=== PATIENT | female | born 1995 | race Two or more races ===

== ENCOUNTER 2020-11-30 15:03 | Emergency (ER) | payer MEDICAID ==
[~2020-11-30] VITALS: Ht 149.9 cm; Wt 59.0 kg
[~2020-11-30 15:03] MED LIST: ALBUPOW26; CETI10CH3; FLUT50AE2; MONT4CHW9; PRED10PA7; [UNRECOGNIZED DRUG - OTHER]
[2020-11-30 16:04] LABS: Basophils # (auto) 0.1 10 ^3/uL (0-0.2); Basophils % (auto) 0.6 % (0.0-2.0); Eosinophils # (auto) 0.3 10 ^3/uL (0-0.8); Eosinophils % (auto) 3.4 % (0.0-7.0); Hematocrit 37.5 % (36.0-46.0); Hemoglobin 12.7 g/dL (12.2-16.2); Lymphocytes # (auto) 2.2 10 ^3/uL (0.4-5.4); Mean Corpuscular Hemoglobin 28.3 pg (28.0-32.0); Mean Corpuscular Hgb Conc. 33.9 g/dL (32.0-36.0); Mean Corpuscular Volume 83.5 fL (80.0-100.0); Monocytes % (auto) 10.6 % (0.0-12.0); Neutrophils # (auto) 5.9 10 ^3/uL (1.6-8.6); Neutrophils % (auto) 62.4 % (37.0-80.0); Nucleated Red Blood Cells % 0.1 %; Platelet Count (auto) 299 10^3/uL (140-450); Red Cell Distribution Width 16.7 % (11.8-14.3); White Blood Cell 9.4 10^3/uL (4.4-10.8)
[2020-11-30 16:15] LABS: Albumin 3.4 g/dL (3.4-5.0); Calcium 8.2 mg/dL (8.5-10.1); Potassium 3.9 mmol/L (3.5-5.1)
[2020-11-30 16:20] LABS: BUN/Creatinine Ratio 17.2; Bilirubin, Total 0.2 mg/dL (0.2-1.0); Total Protein 7.5 g/dL (6.4-8.2)
[2020-11-30 18:22] LABS: Urine Bacteria MOD /hpf (None Seen); Urine Blood Negative /uL (Negative); Urine Specific Gravity 1.016 (1.001-1.035); Urine WBC 51 /hpf (0 - 5)
[2020-11-30 18:35] VITALS: BP 128/74
== END 2020-11-30 18:51 | disposition home or self-care (01) ==
LOC: ER 15:03
DX: O20.0 Threatened abortion (principal); K80.20 Calculus of gallbladder without cholecystitis without obstruction
CPT/HCPCS: 36415; 76705; 76801; 76817; 80053; 81001; 84702; 85025

== ENCOUNTER 2020-12-06 10:10 | Emergency (ER) | payer MEDICAID ==
[~2020-12-06] VITALS: Ht 149.9 cm; Wt 81.6 kg
[2020-12-06] MEDS ORDERED: ACETAMINOPHEN 325 MG TAB PO ONE (11:45)
[2020-12-06 11:53] LABS: Urine WBC None Seen /hpf (0 - 5)
[2020-12-06 12:18] LABS: Urine Bacteria NONE SEEN /hpf (None Seen); Urine Blood Negative /uL (Negative); Urine Specific Gravity 1.011 (1.001-1.035)
[2020-12-06] MEDS ORDERED: ONDANSETRON ODT 4 MG TAB PO ONE (12:45)
[2020-12-06 15:48] VITALS: BP 123/60
== END 2020-12-06 15:51 | disposition home or self-care (01) ==
LOC: ER 10:10
DX: O20.0 Threatened abortion (principal); N83.12 Corpus luteum cyst of left ovary; Z3A.01 Less than 8 weeks gestation of pregnancy
CPT/HCPCS: 36415; 76705; 76801; 76817; 81001; 84702; 99285; Q0162

== ENCOUNTER 2021-01-14 10:56 | Emergency (ER) | payer MEDICAID ==
[~2021-01-14] VITALS: Ht 149.9 cm; Wt 81.6 kg
[2021-01-14] MEDS ORDERED: SODIUM CHLORIDE 0.9% 1,000 ML IV ONE (11:00)
[2021-01-14] MEDS ORDERED: ONDANSETRON HCL 4 MG/2 ML VIAL IV ONE (11:00)
[2021-01-14 11:35] LABS: Basophils # (auto) 0 10 ^3/uL (0-0.2); Basophils % (auto) 0.3 % (0.0-2.0); Eosinophils # (auto) 0.4 10 ^3/uL (0-0.8); Hematocrit 37.5 % (36.0-46.0); Hemoglobin 12.7 g/dL (12.2-16.2); Lymphocytes # (auto) 1.8 10 ^3/uL (0.4-5.4); Lymphocytes % (auto) 19.5 % (10.0-50.0); Mean Corpuscular Hemoglobin 28.3 pg (28.0-32.0); Mean Corpuscular Hgb Conc. 33.9 g/dL (32.0-36.0); Mean Corpuscular Volume 83.5 fL (80.0-100.0); Monocytes # (auto) 0.8 10 ^3/uL (0-1.3); Monocytes % (auto) 8.7 % (0.0-12.0); Neutrophils # (auto) 6.3 10 ^3/uL (1.6-8.6); Neutrophils % (auto) 67.5 % (37.0-80.0); Nucleated Red Blood Cells % 0.2 %; Red Blood Cells 4.49 10^6/uL (4.0-5.20); Red Cell Distribution Width 13.1 % (11.8-14.3); White Blood Cell 9.4 10^3/uL (4.4-10.8)
[2021-01-14 11:38] LABS: Urine Bacteria NONE SEEN /hpf (None Seen); Urine Blood Negative /uL (Negative); Urine Mucus FEW (None Seen); Urine Specific Gravity 1.014 (1.001-1.035); Urine WBC <1 /hpf (0 - 5)
[2021-01-14 11:52] LABS: Albumin 3.6 g/dL (3.4-5.0); BUN/Creatinine Ratio 9.5; Calcium 8.6 mg/dL (8.5-10.1); Potassium 3.5 mmol/L (3.5-5.1)
[2021-01-14 11:56] LABS: Bilirubin, Total 0.3 mg/dL (0.2-1.0); Total Protein 7.8 g/dL (6.4-8.2)
[2021-01-14 12:53] VITALS: BP 106/58
== END 2021-01-14 12:54 | disposition home or self-care (01) ==
LOC: ER 10:56
DX: O21.0 Mild hyperemesis gravidarum (principal); Z3A.12 12 weeks gestation of pregnancy
CPT/HCPCS: 36415; 80053; 81001; 82010; 84702; 85025; 96361; 96374; 99283; J2405; J7030

== ENCOUNTER 2021-01-25 20:27 | Emergency (ER) | payer MEDICAID ==
[~2021-01-25] VITALS: Ht 149.9 cm; Wt 81.6 kg
[2021-01-25 22:36] LABS: Urine Bacteria FEW /hpf (None Seen); Urine Blood Negative /uL (Negative); Urine Specific Gravity 1.006 (1.001-1.035); Urine WBC 1 /hpf (0 - 5)
[2021-01-25 23:28] LABS: Basophils # (auto) 0 10 ^3/uL (0-0.2); Basophils % (auto) 0.3 % (0.0-2.0); Eosinophils # (auto) 0.5 10 ^3/uL (0-0.8); Eosinophils % (auto) 4.6 % (0.0-7.0); Hematocrit 37.6 % (36.0-46.0); Hemoglobin 12.4 g/dL (12.2-16.2); Lymphocytes # (auto) 2.9 10 ^3/uL (0.4-5.4); Lymphocytes % (auto) 29.1 % (10.0-50.0); Mean Corpuscular Volume 84.7 fL (80.0-100.0); Monocytes # (auto) 1.1 10 ^3/uL (0-1.3); Monocytes % (auto) 10.9 % (0.0-12.0); Neutrophils # (auto) 5.4 10 ^3/uL (1.6-8.6); Neutrophils % (auto) 55.1 % (37.0-80.0); Nucleated Red Blood Cells % 0.1 %; Platelet Count (auto) 289 10^3/uL (140-450); Red Blood Cells 4.44 10^6/uL (4.0-5.20); Red Cell Distribution Width 13.6 % (11.8-14.3); White Blood Cell 9.8 10^3/uL (4.4-10.8)
[2021-01-25 23:45] LABS: INR 0.92 (0.9-1.15); Partial Thromboplastin Time 26.1 sec (23.0-31.2)
[2021-01-25 23:48] LABS: Albumin 3.5 g/dL (3.4-5.0); Anion Gap 8 (5-15); Blood Urea Nitrogen 7 mg/dL (7-18); Calcium 8.8 mg/dL (8.5-10.1); Carbon Dioxide 22 mmol/L (21-32); Chloride 108 mmol/L (98-107); Glucose 83 mg/dL (74-106); Potassium 3.8 mmol/L (3.5-5.1); Sodium 138 mmol/L (136-145)
[2021-01-25 23:51] LABS: Alanine Aminotransferase 21 U/L (13-56); Alkaline Phosphatase 44 U/L (45-117); Aspartate Aminotransferase 14 U/L (15-37); BUN/Creatinine Ratio 15.2; Bilirubin, Total < 0.1 mg/dL (0.2-1.0); GFR African American 211 mL/min; GFR Non-African American 175 mL/min; Total Protein 7.6 g/dL (6.4-8.2)
[2021-01-26] VITALS: BP 130/70
[2021-01-26] MEDS ORDERED: ACETAMINOPHEN 325 MG TAB PO ONE (00:30)
== END 2021-01-26 00:42 | disposition home or self-care (01) ==
LOC: ER 20:27
DX: O20.0 Threatened abortion (principal); Z3A.14 14 weeks gestation of pregnancy
CPT/HCPCS: 36415; 76805; 80053; 81001; 84702; 85025; 85610; 85730

== ENCOUNTER 2021-02-16 21:45 | Emergency (ER) | payer MEDICAID ==
[~2021-02-16] VITALS: Ht 149.9 cm; Wt 81.6 kg
[2021-02-16 23:01] LABS: Basophils # (auto) 0 10 ^3/uL (0-0.2); Basophils % (auto) 0.3 % (0.0-2.0); Eosinophils # (auto) 0.7 10 ^3/uL (0-0.8); Eosinophils % (auto) 6.2 % (0.0-7.0); Hematocrit 35.9 % (36.0-46.0); Hemoglobin 11.9 g/dL (12.2-16.2); Lymphocytes # (auto) 2.8 10 ^3/uL (0.4-5.4); Lymphocytes % (auto) 23.6 % (10.0-50.0); Mean Corpuscular Hemoglobin 27.3 pg (28.0-32.0); Mean Corpuscular Hgb Conc. 33.1 g/dL (32.0-36.0); Mean Corpuscular Volume 82.6 fL (80.0-100.0); Monocytes # (auto) 1.3 10 ^3/uL (0-1.3); Monocytes % (auto) 10.8 % (0.0-12.0); Neutrophils # (auto) 7.1 10 ^3/uL (1.6-8.6); Neutrophils % (auto) 59.1 % (37.0-80.0); Nucleated Red Blood Cells % 0.2 %; Platelet Count (auto) 303 10^3/uL (140-450); Red Blood Cells 4.35 10^6/uL (4.0-5.20); Red Cell Distribution Width 13.2 % (11.8-14.3)
[2021-02-16 23:20] LABS: Alanine Aminotransferase 17 U/L (13-56); Albumin 3.2 g/dL (3.4-5.0); Anion Gap 7 (5-15); Aspartate Aminotransferase 15 U/L (15-37); BUN/Creatinine Ratio 17.5; Blood Urea Nitrogen 7 mg/dL (7-18); Calcium 9.3 mg/dL (8.5-10.1); Carbon Dioxide 21 mmol/L (21-32); Chloride 109 mmol/L (98-107); GFR African American 248 mL/min; GFR Non-African American 205 mL/min; Glucose 86 mg/dL (74-106); Potassium 3.8 mmol/L (3.5-5.1); Sodium 137 mmol/L (136-145)
[2021-02-16 23:28] LABS: Alkaline Phosphatase 42 U/L (45-117); Bilirubin, Total < 0.1 mg/dL (0.2-1.0); Total Protein 7.1 g/dL (6.4-8.2)
[2021-02-17 00:27] VITALS: BP 110/40
[2021-02-17 01:46] LABS: Urine Bacteria NONE SEEN /hpf (None Seen); Urine Blood Negative /uL (Negative); Urine Specific Gravity 1.013 (1.001-1.035); Urine WBC 2 /hpf (0 - 5)
== END 2021-02-17 01:52 | disposition home or self-care (01) ==
LOC: ER 21:49
DX: O26.892 Other specified pregnancy related conditions, second trimester (principal); R10.9 Unspecified abdominal pain; O99.512 Diseases of the respiratory system complicating pregnancy, second trimester; J45.909 Unspecified asthma, uncomplicated; Z3A.17 17 weeks gestation of pregnancy; Z88.1 Allergy status to other antibiotic agents; Z87.42 Personal history of other diseases of the female genital tract
CPT/HCPCS: 36415; 76805; 80053; 81001; 84702; 85025

== ENCOUNTER 2021-04-01 22:53 | Observation (INO) | payer MEDICAID ==
[~2021-04-01] VITALS: Ht 149.9 cm; Wt 81.6 kg
[2021-04-02] MEDS ORDERED: LACTATED RINGER'S 1,000 ML IV ONE
[2021-04-02] MEDS ORDERED: TERBUTALINE SULFATE 1 MG/ML 1ML VIAL SC ONE (01:15)
[2021-04-02] MEDS ORDERED: NIFEdipine 10 MG CAP PO ONE (02:15)
[2021-04-02] MEDS ORDERED: PREN-96 OR (03:09)
== END 2021-04-02 03:36 | disposition home or self-care (01) ==
LOC: LDRP 22:53
PROVIDERS: ADMIT Specialist; ATTEND Specialist
DX: O36.8130 Decreased fetal movements, third trimester, not applicable or unspecified (principal); O62.9 Abnormality of forces of labor, unspecified; Z3A.23 23 weeks gestation of pregnancy
CPT/HCPCS: 59025; 76705; 81002; 96360; 96372; G0378; J3105; 96361

== ENCOUNTER 2021-04-08 12:50 | Observation (INO) | payer MEDICAID ==
[~2021-04-08 12:50] MED LIST changes: +PREN-96 OR
== END 2021-04-08 14:50 | disposition home or self-care (01) ==
LOC: LDRP 12:50
PROVIDERS: ADMIT Obstetrics & Gynecology; ATTEND Obstetrics & Gynecology
DX: O36.8120 Decreased fetal movements, second trimester, not applicable or unspecified (principal); Z3A.24 24 weeks gestation of pregnancy
CPT/HCPCS: 59025; 81002; G0378

== ENCOUNTER 2021-04-22 20:21 | Observation (INO) | payer MEDICAID ==
[~2021-04-22] VITALS: Ht 149.9 cm; Wt 85.3 kg
[~2021-04-22 20:21] MED LIST changes: -CETI10CH3; -MONT4CHW9; -PRED10PA7; -[UNRECOGNIZED DRUG - OTHER]
[2021-04-22] MEDS ORDERED: NIF10C PO (21:02)
[2021-04-22 21:14] LABS: Urine Bacteria FEW /hpf (None Seen); Urine Blood Negative /uL (Negative); Urine Mucus FEW (None Seen); Urine Specific Gravity 1.031 (1.001-1.035); Urine WBC 5 /hpf (0 - 5)
[2021-04-22 21:24] LABS: Alcohol, Urine < 3.0 mg/dL (0-10); Amphetamine Screen, Urine NEGATIVE (NEGATIVE); Barbiturate Scree,Urine NEGATIVE (NEGATIVE); Benzodiazephine Screen, Urine NEGATIVE (NEGATIVE); Cannabinoid Screen, Urine NEGATIVE (NEGATIVE); Cocaine Screen, Urine NEGATIVE (NEGATIVE); Opiate Scree,Urine NEGATIVE (NEGATIVE); Phencyclidine Screen, Urine NEGATIVE (NEGATIVE)
[2021-04-22] MEDS ORDERED: NIFEdipine 10 MG CAP PO ONE (22:30)
== END 2021-04-22 23:39 | disposition home or self-care (01) ==
LOC: LDRP 20:21
PROVIDERS: ADMIT Obstetrics & Gynecology; ATTEND Obstetrics & Gynecology
DX: O26.892 Other specified pregnancy related conditions, second trimester (principal); R10.9 Unspecified abdominal pain; O26.852 Spotting complicating pregnancy, second trimester; W50.0XXA Accidental hit or strike by another person, initial encounter; Y93.89 Activity, other specified; Y92.89 Other specified places as the place of occurrence of the external cause; Z88.0 Allergy status to penicillin; Z3A.26 26 weeks gestation of pregnancy; Z79.899 Other long term (current) drug therapy
CPT/HCPCS: 59025; 76815; 80307; 81001; 81002; 94760; G0378

== ENCOUNTER 2021-05-02 23:28 | Observation (INO) | payer MEDICAID ==
[~2021-05-02] VITALS: Ht 149.9 cm; Wt 84.4 kg
[~2021-05-02 23:28] MED LIST changes: +NIF10C PO
== END 2021-05-03 03:35 | disposition home or self-care (01) ==
LOC: LDRP 23:28
PROVIDERS: ADMIT Specialist; ATTEND Specialist
DX: O26.892 Other specified pregnancy related conditions, second trimester (principal); R10.9 Unspecified abdominal pain; O99.891 Other specified diseases and conditions complicating pregnancy; M54.9 Dorsalgia, unspecified; Z88.0 Allergy status to penicillin; Z3A.27 27 weeks gestation of pregnancy
CPT/HCPCS: 59025; 76705; 81002; G0378

== ENCOUNTER 2021-05-16 11:40 | Observation (INO) | payer MEDICAID | END 2021-05-16 13:45 | disposition home or self-care (01) | LOC: LDRP 11:40 | PROVIDERS: ADMIT Specialist; ATTEND Specialist | DX: O36.8130 Decreased fetal movements, third trimester, not applicable or unspecified (principal); O62.9 Abnormality of forces of labor, unspecified; O26.893 Other specified pregnancy related conditions, third trimester; R11.0 Nausea; Z3A.29 29 weeks gestation of pregnancy | CPT/HCPCS: 59025; 81002; 96360; G0378; 96374 ==

== ENCOUNTER 2021-05-18 08:09 | Observation (INO) | payer MEDICAID ==
[~2021-05-18] VITALS: Ht 149.9 cm; Wt 85.3 kg
== END 2021-05-18 16:00 | disposition home or self-care (01) ==
LOC: LDRP 14:15
PROVIDERS: ADMIT Obstetrics & Gynecology; ATTEND Obstetrics & Gynecology
DX: O40.3XX0 Polyhydramnios, third trimester, not applicable or unspecified (principal); O60.03 Preterm labor without delivery, third trimester; Z88.0 Allergy status to penicillin; Z3A.29 29 weeks gestation of pregnancy
CPT/HCPCS: 59025; 76818; 81002; 82948; 94760; G0378

== ENCOUNTER 2021-05-25 13:25 | Observation (INO) | payer MEDICAID ==
[~2021-05-25] VITALS: Ht 149.9 cm; Wt 85.3 kg
[2021-05-26] MEDS ORDERED: ONDA-144 PO (02:52)
== END 2021-05-25 15:59 | disposition home or self-care (01) ==
LOC: LDRP 13:25
PROVIDERS: ADMIT Specialist; ATTEND Specialist
DX: O60.03 Preterm labor without delivery, third trimester (principal); O40.3XX0 Polyhydramnios, third trimester, not applicable or unspecified; Z3A.30 30 weeks gestation of pregnancy
CPT/HCPCS: 59025; 76818; 81002; G0378

== ENCOUNTER 2021-05-25 23:40 | Observation (INO) | payer MEDICAID ==
[~2021-05-25] VITALS: Ht 149.9 cm; Wt 81.6 kg
[2021-05-26] MEDS ORDERED: ONDANSETRON HCL 4 MG/2 ML VIAL IM ONE (00:15)
[2021-05-26] MEDS ORDERED: LACTATED RINGER'S 1,000 ML IV ONE (00:15)
[2021-05-26] MEDS ORDERED: ONDANSETRON HCL 4 MG/2 ML VIAL IV ONE (00:15)
[2021-05-26] MEDS: TERBUTALINE SULFATE 1 MG/ML 1ML VIAL SC SCH ×3 (00:35→03:31)
[2021-05-26] MEDS ORDERED: ONDA-144 PO (02:52)
== END 2021-05-26 03:04 | disposition home or self-care (01) ==
LOC: LDRP 23:40
PROVIDERS: ADMIT Specialist; ATTEND Specialist
DX: O60.03 Preterm labor without delivery, third trimester (principal); Z3A.30 30 weeks gestation of pregnancy
CPT/HCPCS: 59025; 81002; 94760; 96361; 96372; 96374; G0378; J2405; J3105; 96360

== ENCOUNTER 2021-05-28 10:54 | Observation (INO) | payer MEDICAID ==
[~2021-05-28 10:54] MED LIST changes: +ONDA-144 PO
== END 2021-05-28 12:08 | disposition home or self-care (01) ==
LOC: LDRP 10:54
PROVIDERS: ADMIT Specialist; ATTEND Specialist
DX: O40.3XX0 Polyhydramnios, third trimester, not applicable or unspecified (principal); O62.9 Abnormality of forces of labor, unspecified; Z3A.31 31 weeks gestation of pregnancy
CPT/HCPCS: 59025; 76818; 81002; 94762; G0378

== ENCOUNTER 2021-06-01 08:14 | Observation (INO) | payer MEDICAID | END 2021-06-01 14:13 | disposition home or self-care (01) | LOC: LDRP 13:11 | PROVIDERS: ADMIT Obstetrics & Gynecology; ATTEND Obstetrics & Gynecology | DX: O40.3XX0 Polyhydramnios, third trimester, not applicable or unspecified (principal); O60.03 Preterm labor without delivery, third trimester; Z3A.31 31 weeks gestation of pregnancy; Z79.899 Other long term (current) drug therapy; Z88.1 Allergy status to other antibiotic agents | CPT/HCPCS: 59025; 76818; 81002; G0378 ==

== ENCOUNTER 2021-06-05 17:58 | Observation (INO) | payer MEDICAID ==
[~2021-06-05] VITALS: Ht 149.9 cm; Wt 81.6 kg
== END 2021-06-05 20:07 | disposition home or self-care (01) ==
LOC: LDRP 17:58
PROVIDERS: ADMIT Obstetrics & Gynecology; ATTEND Obstetrics & Gynecology
DX: O36.8130 Decreased fetal movements, third trimester, not applicable or unspecified (principal); Z3A.32 32 weeks gestation of pregnancy; Z98.891 History of uterine scar from previous surgery
CPT/HCPCS: 59025; 76818; 81002; G0378

== ENCOUNTER 2021-07-16 04:04 | Inpatient (IN) | payer MEDICAID ==
[~2021-07-16] VITALS: Ht 144.8 cm; Wt 85.7 kg
[2021-07-16] VITALS (18 sets, daily range): BP systolic 110–137; BP diastolic 63–84
[2021-07-16] MEDS ORDERED: LACTATED RINGER'S 1,000 ML IV ONE (04:30)
[2021-07-16 05:13] LABS: Basophils # (auto) 0 10 ^3/uL (0-0.2); Eosinophils # (auto) 0.3 10 ^3/uL (0-0.8); Eosinophils % (auto) 3.1 % (0.0-7.0); Lymphocytes # (auto) 2.1 10 ^3/uL (0.4-5.4)
[2021-07-16] MEDS ORDERED: CLINDAMYCIN 900MG IV 50 ML IV ONE ×2 (05:15→07:04)
[2021-07-16 05:16] LABS: Basophils % (auto) 0.3 % (0.0-2.0); Hematocrit 31.4 % (36.0-46.0); Lymphocytes % (auto) 23.3 % (10.0-50.0); Mean Corpuscular Hemoglobin 22.3 pg (28.0-32.0); Mean Corpuscular Hgb Conc. 31.8 g/dL (32.0-36.0); Mean Corpuscular Volume 70.2 fL (80.0-100.0); Neutrophils # (auto) 5.6 10 ^3/uL (1.6-8.6); Neutrophils % (auto) 62.3 % (37.0-80.0); Nucleated Red Blood Cells % 0.1 %; Red Blood Cells 4.47 10^6/uL (4.0-5.20); Red Cell Distribution Width 17.2 % (11.8-14.3)
[2021-07-16 05:19] LABS: INR 0.94 (0.9-1.15); Partial Thromboplastin Time 25.1 sec (23.6-33.0)
[2021-07-16 05:24] LABS: Albumin 2.5 g/dL (3.4-5.0); Calcium 8.1 mg/dL (8.5-10.1); Potassium 3.6 mmol/L (3.5-5.1)
[2021-07-16 05:27] LABS: Bilirubin, Total 0.2 mg/dL (0.2-1.0); Total Protein 6.4 g/dL (6.4-8.2)
[2021-07-16] MEDS: LACTATED RINGER'S 1,000 ML IV SCH ×2 (05:31→21:31)
[2021-07-16 05:43] LABS: Urine Bacteria FEW /hpf (None Seen); Urine Blood Negative /uL (Negative); Urine Specific Gravity 1.011 (1.001-1.035); Urine WBC 7 /hpf (0 - 5)
[2021-07-16 05:48] LABS: Alcohol, Urine < 3.0 mg/dL (0-10); Amphetamine Screen, Urine NEGATIVE (NEGATIVE); Barbiturate Scree,Urine NEGATIVE (NEGATIVE); Benzodiazephine Screen, Urine NEGATIVE (NEGATIVE); Cannabinoid Screen, Urine NEGATIVE (NEGATIVE); Cocaine Screen, Urine NEGATIVE (NEGATIVE); Opiate Scree,Urine NEGATIVE (NEGATIVE); Phencyclidine Screen, Urine NEGATIVE (NEGATIVE)
[2021-07-16] MEDS ORDERED: fentaNYL CITRATE 100 MCG/2 ML VL ONE (07:15)
[2021-07-16] MEDS ORDERED: PHENYLEPHRINE HCL 10 MG/ML VL IV ONE (07:15)
[2021-07-16] MEDS ORDERED: oxyTOCIN 10 UNIT/ML 10ML VIAL ONE (07:15)
[2021-07-16] MEDS ORDERED: CLINDAMYCIN 600MG IV 50 ML IV SCH ×2 (07:15→14:00)
[2021-07-16] MEDS ORDERED: MIDAZOLAM HCL 2MG/2ML 2ml VIAL (1mg/ml) ONE ×2 (07:15→08:02)
[2021-07-16] MEDS ORDERED: TETRACAINE 1% INJ 2 ML VIAL IJ ONE (07:32)
[2021-07-16] MEDS ORDERED: LABETALOL HCL 5 MG/ML 4ML SYRINGE IV PRN (08:45)
[2021-07-16] MEDS ORDERED: KETOROLAC TROMETH 30 MG/ML 1ML VIAL IV ONE (08:45)
[2021-07-16] MEDS ORDERED: GUM (CHEWING) 1 GUM CHEW CHEW ONE (08:45)
[2021-07-16] MEDS ORDERED: fentaNYL CITRATE 100 MCG/2 ML VL IV PRN (08:45)
[2021-07-16] MEDS ORDERED: MORPHINE SULFATE 4 MG/ML SYR/VIAL IV PRN (08:45)
[2021-07-16] MEDS ORDERED: ePHEDrine SULFATE 50 MG/ML AMP IV PRN (08:45)
[2021-07-16] MEDS ORDERED: LACT. RINGERS/OXYTOCIN 20UNITS 1,000 ML IV ONE (08:45)
[2021-07-16] MEDS ORDERED: HYDROmorphone HCL 2 MG/ML VL IV PRN (08:45)
[2021-07-16] MEDS ORDERED: ONDANSETRON HCL 4 MG/2 ML VIAL IV PRN ×2 (08:45)
[2021-07-16] MEDS ORDERED: MIDAZOLAM HCL 2MG/2ML 2ml VIAL (1mg/ml) IV PRN (08:45)
[2021-07-16] MEDS: ACETAMINOPHEN IV 1000 MG/100ML (10MG/ML) IV SCH ×2 (12:24→21:56)
[2021-07-16] MEDS: MORPHINE SULFATE 4 MG/ML SYR/VIAL IV PRN ×3 (14:32→23:38)
[2021-07-16] MEDS: CLINDAMYCIN 600MG IV 50 ML IV SCH ×2 (14:33→23:05)
[2021-07-16 21:32] LABS: Basophils # (auto) 0 10 ^3/uL (0-0.2); Eosinophils # (auto) 0.1 10 ^3/uL (0-0.8); Hemoglobin 10.2 g/dL (12.2-16.2); Lymphocytes % (auto) 9.6 % (10.0-50.0); Monocytes # (auto) 0.9 10 ^3/uL (0-1.3); Nucleated Red Blood Cells % 0.1 %
[2021-07-16 21:34] LABS: Basophils % (auto) 0.4 % (0.0-2.0); Hematocrit 33.6 % (36.0-46.0); Lymphocytes # (auto) 1.3 10 ^3/uL (0.4-5.4); Mean Corpuscular Hemoglobin 21.5 pg (28.0-32.0); Mean Corpuscular Hgb Conc. 30.5 g/dL (32.0-36.0); Mean Corpuscular Volume 70.7 fL (80.0-100.0); Neutrophils # (auto) 10.8 10 ^3/uL (1.6-8.6); Red Blood Cells 4.76 10^6/uL (4.0-5.20); Red Cell Distribution Width 17.1 % (11.8-14.3); White Blood Cell 13.1 10^3/uL (4.4-10.8)
[2021-07-16] MEDS ORDERED: ACETAMINOPHEN IV 1000 MG/100ML (10MG/ML) IV SCH (22:00)
[2021-07-17] VITALS (12 sets, daily range): BP systolic 116–148; BP diastolic 62–85
[2021-07-17] MEDS ORDERED: MORPHINE SULFATE INJECTION 2 MG/ML SYRG ONE (03:31)
[2021-07-17] MEDS ORDERED: MORPHINE SULFATE 4 MG/ML SYR/VIAL IV ONE (03:45)
[2021-07-17 07:06] LABS: RPR Non Reactive (Non Reactive)
[2021-07-17 07:17] LABS: Basophils # (auto) 0 10 ^3/uL (0-0.2); Basophils % (auto) 0.3 % (0.0-2.0); Eosinophils # (auto) 0.2 10 ^3/uL (0-0.8); Lymphocytes # (auto) 1.1 10 ^3/uL (0.4-5.4); Red Blood Cells 4.45 10^6/uL (4.0-5.20); White Blood Cell 11.9 10^3/uL (4.4-10.8)
[2021-07-17 07:18] LABS: Eosinophils % (auto) 1.9 % (0.0-7.0); Hematocrit 31.3 % (36.0-46.0); Hemoglobin 9.9 g/dL (12.2-16.2); Lymphocytes % (auto) 9.6 % (10.0-50.0); Mean Corpuscular Hemoglobin 22.2 pg (28.0-32.0); Mean Corpuscular Hgb Conc. 31.6 g/dL (32.0-36.0); Mean Corpuscular Volume 70.4 fL (80.0-100.0); Monocytes % (auto) 8.4 % (0.0-12.0); Neutrophils # (auto) 9.5 10 ^3/uL (1.6-8.6); Neutrophils % (auto) 79.8 % (37.0-80.0); Red Cell Distribution Width 17.5 % (11.8-14.3)
[2021-07-17] MEDS: MORPHINE SULFATE 4 MG/ML SYR/VIAL IV PRN (07:53)
[2021-07-17] MEDS: CLINDAMYCIN 600MG IV 50 ML IV SCH (07:57)
[2021-07-17] MEDS ORDERED: KETOROLAC TROMETH 30 MG/ML 1ML VIAL IV ONE (08:15)
[2021-07-17] MEDS ORDERED: BISACODYL 10 MG RECT SUPP PR PRN (10:15)
[2021-07-17] MEDS ORDERED: HYDROcodone-ACET 5/325MG TAB PO PRN (10:15)
[2021-07-17] MEDS: SIMETHICONE 80 MG CHEWABLE TABLET PO SCH ×3 (12:21→21:47)
[2021-07-17] MEDS: HYDROcodone-ACET 5/325MG TAB PO PRN ×3 (12:33→22:26)
[2021-07-17] MEDS: IBUPROFEN 800 MG TAB PO PRN (17:22)
[2021-07-17] MEDS: DOCUSATE SOD 100 MG CAP PO SCH (22:27)
[2021-07-18] VITALS (7 sets, daily range): BP systolic 110–134; BP diastolic 63–80
[2021-07-18] MEDS: HYDROcodone-ACET 5/325MG TAB PO PRN ×5 (03:11→23:09)
[2021-07-18] MEDS: SIMETHICONE 80 MG CHEWABLE TABLET PO SCH ×4 (06:16→23:09)
[2021-07-18] MEDS: IBUPROFEN 800 MG TAB PO PRN ×2 (06:22→15:01)
[2021-07-18] MEDS: DOCUSATE CALCIUM 240 MG CAP PO SCH (10:34)
[2021-07-18] MEDS: DOCUSATE SOD 100 MG CAP PO SCH ×2 (10:35→23:10)
[2021-07-18] MEDS ORDERED: TETANUS-DIPTH-ACEL PERTUSSIS 0.5ML SYR Tdap IM ONE (18:15)
[2021-07-19 03:00] VITALS: BP 126/69
[2021-07-19] MEDS: IBUPROFEN 800 MG TAB PO PRN (04:20)
[2021-07-19] MEDS: HYDROcodone-ACET 5/325MG TAB PO PRN ×2 (05:13→09:39)
[2021-07-19] MEDS: SIMETHICONE 80 MG CHEWABLE TABLET PO SCH (06:25)
[2021-07-19 07:10] VITALS: BP 122/70
[2021-07-19] MEDS: DOCUSATE CALCIUM 240 MG CAP PO SCH (09:40)
[2021-07-19] MEDS: DOCUSATE SOD 100 MG CAP PO SCH (10:00)
[2021-07-19 11:00] VITALS: BP 122/73
== END 2021-07-19 11:24 | disposition home or self-care (01) | DRG 540 ==
LOC: LDRP 04:04
PROVIDERS: ADMIT Obstetrics & Gynecology; ATTEND Obstetrics & Gynecology
PROC: 10D00Z1 Extraction of Products of Conception, Low, Open Approach (ICD-10-PCS; principal; 2021-07-16 07:20)
DX: O99.52 Diseases of the respiratory system complicating childbirth (principal); F31.9 Bipolar disorder, unspecified; O34.219 Maternal care for unspecified type scar from previous cesarean delivery; Z37.0 Single live birth; O34.211 Maternal care for low transverse scar from previous cesarean delivery; O99.344 Other mental disorders complicating childbirth; J45.909 Unspecified asthma, uncomplicated; Z3A.38 38 weeks gestation of pregnancy
CPT/HCPCS: 36415; 59025; 80053; 80307; 81001; 81002; 85025; 85610; 85730; 86592; 86850; 86900; 86901; 90471; 90715; 94760; 94762; 96360; 96361; 96365; 96366; 96374; 96375; G0378; J0131; J1885; J2250; J2405; J2590; J3490

== ENCOUNTER 2022-03-16 18:48 | Inpatient (IN) | payer MEDICAID ==
[~2022-03-16] VITALS: Ht 160 cm; Wt 83.2 kg
[~2022-03-16 18:48] MED LIST changes: -NIF10C PO; -ONDA-144 PO
[2022-03-16] MEDS ORDERED: IPRATROPIUM BROM 0.5 MG/2.5ML INH SOL NEB ONE (21:45)
[2022-03-16] MEDS ORDERED: ALBUTEROL SULF 2.5 MG/0.5ML(0.5%) NEB SOLN NEB ONE (21:45)
[2022-03-16 21:58] LABS: Basophils # (auto) 0 10 ^3/uL (0-0.2); Eosinophils # (auto) 0 10 ^3/uL (0-0.8); Hemoglobin 12.4 g/dL (12.2-16.2); Lymphocytes # (auto) 0.9 10 ^3/uL (0.4-5.4); Mean Corpuscular Hemoglobin 24.6 pg (28.0-32.0); Monocytes # (auto) 0.3 10 ^3/uL (0-1.3); Monocytes % (auto) 2.3 % (0.0-12.0)
[2022-03-16 22:00] LABS: Basophils % (auto) 0.3 % (0.0-2.0); Hematocrit 37.9 % (36.0-46.0); Lymphocytes % (auto) 8.4 % (10.0-50.0); Mean Corpuscular Hgb Conc. 32.7 g/dL (32.0-36.0); Mean Corpuscular Volume 75.2 fL (80.0-100.0); Red Blood Cells 5.04 10^6/uL (4.0-5.20); Red Cell Distribution Width 17.5 % (11.8-14.3); White Blood Cell 11.2 10^3/uL (4.4-10.8)
[2022-03-16 22:15] LABS: Albumin 4.1 g/dL (3.4-5.0); Calcium 9.1 mg/dL (8.5-10.1); Potassium 3.8 mmol/L (3.5-5.1)
[2022-03-16 22:16] LABS: Urine Bacteria NONE SEEN /hpf (None Seen); Urine Blood Negative /uL (Negative); Urine Mucus FEW (None Seen); Urine Specific Gravity 1.029 (1.001-1.035); Urine WBC <1 /hpf (0 - 5)
[2022-03-16 22:19] LABS: BUN/Creatinine Ratio 9.6; Bilirubin, Total 0.3 mg/dL (0.2-1.0); CRP High Sensitivity 0.49 mg/dL (< 0.3); Total Protein 8.8 g/dL (6.4-8.2)
[2022-03-17] MEDS ORDERED: ONDANSETRON HCL 4 MG/2 ML VIAL IV PRN (14:00)
[2022-03-17] MEDS ORDERED: MORPHINE SULFATE INJ 2 MG/ml SYRG IV PRN ×3 (14:00→14:15)
[2022-03-17] MEDS ORDERED: ACETAMINOPHEN 500 MG TAB PO PRN (14:00)
[2022-03-17] MEDS ORDERED: NITROGLYCERIN 0.4 MG SL TAB SL PRN (14:15)
[2022-03-17] MEDS: IPRATROPIUM BROM 0.5 MG/2.5ML INH SOL NEB SCH ×3 (15:02→22:28)
[2022-03-17] MEDS: ALBUTEROL SULF 2.5 MG/0.5ML(0.5%) NEB SOLN NEB SCH ×3 (15:02→22:28)
[2022-03-17 17:05] VITALS: BP 137/57
[2022-03-17] MEDS: methylPREDNISolone SOD SUCC 40 MG/ML VL IV SCH (17:27)
[2022-03-17] MEDS: BUDESONIDE (INHALATION) 0.5 MG/2 ML NEB NEB SCH (18:06)
[2022-03-17 20:13] VITALS: BP 107/59
[2022-03-17 22:00] VITALS: BP 108/59
[2022-03-18] MEDS: FAMOTIDINE 20 MG TAB PO SCH ×3 (00:10→21:41)
[2022-03-18] MEDS: methylPREDNISolone SOD SUCC 40 MG/ML VL IV SCH ×4 (00:10→17:11)
[2022-03-18 05:00] VITALS: BP 118/68
[2022-03-18] MEDS: ALBUTEROL SULF 2.5 MG/0.5ML(0.5%) NEB SOLN NEB SCH ×5 (06:26→21:41)
[2022-03-18] MEDS: IPRATROPIUM BROM 0.5 MG/2.5ML INH SOL NEB SCH ×5 (06:26→21:41)
[2022-03-18 07:46] LABS: Basophils # (auto) 0 10 ^3/uL (0-0.2); Eosinophils # (auto) 0 10 ^3/uL (0-0.8); Lymphocytes # (auto) 1.3 10 ^3/uL (0.4-5.4); Neutrophils % (auto) 82.9 % (37.0-80.0); Red Cell Distribution Width 17.9 % (11.8-14.3)
[2022-03-18 07:48] LABS: Basophils % (auto) 0.2 % (0.0-2.0); Hematocrit 36.4 % (36.0-46.0); Hemoglobin 12.1 g/dL (12.2-16.2); Lymphocytes % (auto) 12.1 % (10.0-50.0); Mean Corpuscular Hemoglobin 25.2 pg (28.0-32.0); Mean Corpuscular Hgb Conc. 33.3 g/dL (32.0-36.0); Monocytes # (auto) 0.5 10 ^3/uL (0-1.3); Monocytes % (auto) 4.8 % (0.0-12.0); Neutrophils # (auto) 8.8 10 ^3/uL (1.6-8.6); Nucleated Red Blood Cells % 0.2 %; Red Blood Cells 4.81 10^6/uL (4.0-5.20); White Blood Cell 10.6 10^3/uL (4.4-10.8)
[2022-03-18 07:49] LABS: Mean Corpuscular Volume 75.8 fL (80.0-100.0)
[2022-03-18 08:00] VITALS: BP 124/50
[2022-03-18 08:19] LABS: BUN/Creatinine Ratio 12.9; Calcium 8.7 mg/dL (8.5-10.1); Potassium 3.9 mmol/L (3.5-5.1)
[2022-03-18 09:00] VITALS: BP 118/54
[2022-03-18] MEDS: levoFLOXacin 500MG 100 ML IV SCH (10:00)
[2022-03-18] MEDS: BUDESONIDE (INHALATION) 0.5 MG/2 ML NEB NEB SCH ×2 (10:05→21:41)
[2022-03-18] MEDS: MORPHINE SULFATE INJ 2 MG/ml SYRG IV PRN (12:20)
[2022-03-18 12:59] VITALS: BP 124/50
[2022-03-18 16:42] VITALS: BP 126/51
[2022-03-18] MEDS: ENOXAPARIN SOD 40 MG/0.4 ML SYRINGE SC SCH (21:45)
[2022-03-18 22:00] VITALS: BP 115/50
[2022-03-19] MEDS: methylPREDNISolone SOD SUCC 40 MG/ML VL IV SCH ×3 (01:20→13:04)
[2022-03-19 05:00] VITALS: BP 117/75
[2022-03-19] MEDS: ALBUTEROL SULF 2.5 MG/0.5ML(0.5%) NEB SOLN NEB SCH ×3 (06:49→14:54)
[2022-03-19] MEDS: IPRATROPIUM BROM 0.5 MG/2.5ML INH SOL NEB SCH ×3 (06:50→14:54)
[2022-03-19] MEDS: BUDESONIDE (INHALATION) 0.5 MG/2 ML NEB NEB SCH (06:50)
[2022-03-19 09:29] VITALS: BP 126/49
[2022-03-19] MEDS: levoFLOXacin 500MG 100 ML IV SCH ×2 (10:07→10:11)
[2022-03-19] MEDS: FAMOTIDINE 20 MG TAB PO SCH ×2 (10:07→10:14)
[2022-03-19] MEDS: ENOXAPARIN SOD 40 MG/0.4 ML SYRINGE SC SCH (10:15)
[2022-03-19] MEDS: MORPHINE SULFATE INJ 2 MG/ml SYRG IV PRN (10:56)
[2022-03-19] MEDS ORDERED: ALB5IS NEB (12:36)
[2022-03-19] MEDS ORDERED: MONT10TA23 PO (12:36)
[2022-03-19] MEDS ORDERED: IPR002IS NEB (12:36)
[2022-03-19] MEDS ORDERED: PRED20TA2 PO (12:36)
[2022-03-19] MEDS ORDERED: AZIT500T66 PO (12:36)
[2022-03-19] MEDS ORDERED: DEXT1SYP9 PO (12:45)
[2022-03-19 13:16] VITALS: BP 120/53
[2022-03-19 14:21] VITALS: BP 120/53
== END 2022-03-19 15:15 | disposition home or self-care (01) | DRG 566 ==
LOC: ER 18:50 → OVERFLOW 03-17 13:50 → EAST 03-17 19:41
PROVIDERS: ADMIT Hospitalist; ATTEND Hospitalist
DX: O99.519 Diseases of the respiratory system complicating pregnancy, unspecified trimester (principal); J96.01 Acute respiratory failure with hypoxia; E66.9 Obesity, unspecified; J98.11 Atelectasis; J45.901 Unspecified asthma with (acute) exacerbation; Z20.822 Contact with and (suspected) exposure to COVID-19; O99.210 Obesity complicating pregnancy, unspecified trimester; Z98.891 History of uterine scar from previous surgery; Z3A.00 Weeks of gestation of pregnancy not specified; Z88.1 Allergy status to other antibiotic agents
CPT/HCPCS: 36415; 36600; 71045; 76801; 76817; 80048; 80053; 81001; 81025; 82805; 84702; 85025; 85379; 86141; 87804; 94640; 96365; 96375; G0378; J1956

== ENCOUNTER 2022-07-30 07:54 | Emergency (ER) | payer MEDICAID ==
[~2022-07-30] VITALS: Ht 149.9 cm; Wt 78.8 kg
[~2022-07-30 07:54] MED LIST changes: +ALB5IS NEB; -ALBUPOW26; +AZIT500T66 PO; +DEXT1SYP9 PO; +IPR002IS NEB; +MONT10TA23 PO; +PRED20TA2 PO
[2022-07-30 08:28] VITALS: BP 123/74
[2022-07-30] MEDS ORDERED: ALBUTEROL SULF 2.5 MG/0.5ML(0.5%) NEB SOLN NEB ONE ×2 (09:00→10:45)
[2022-07-30] MEDS ORDERED: IPRATROPIUM BROM 0.5 MG/2.5ML INH SOL NEB ONE ×2 (09:00→10:45)
[2022-07-30] MEDS ORDERED: methylPREDNISolone SOD SUCC 125 MG/2 ML VL IM ONE (09:00)
[2022-07-30] MEDS ORDERED: PRED20TA2 PO (11:20)
[2022-07-30] MEDS ORDERED: ALBU108A5 IN (11:20)
== END 2022-07-30 11:25 | disposition home or self-care (01) ==
LOC: ER 07:54
DX: J45.901 Unspecified asthma with (acute) exacerbation (principal)
CPT/HCPCS: 71045; 94640; 96372; 99284; J2930; J7644

== ENCOUNTER 2022-09-29 07:31 | Emergency (ER) | payer MEDICAID ==
[~2022-09-29] VITALS: Ht 149.9 cm; Wt 77.2 kg
[~2022-09-29 07:31] MED LIST changes: +ALBU108A5 IN
[2022-09-29 08:07] LABS: Basophils # (auto) 0.1 10 ^3/uL (0-0.2); Eosinophils # (auto) 0.2 10 ^3/uL (0-0.8); Eosinophils % (auto) 3.7 % (0.0-7.0); Mean Corpuscular Volume 75.8 fL (80.0-100.0); Monocytes # (auto) 0.6 10 ^3/uL (0-1.3); Nucleated Red Blood Cells % 0.1 %; White Blood Cell 6.4 10^3/uL (4.4-10.8)
[2022-09-29 08:09] LABS: Basophils % (auto) 0.9 % (0.0-2.0); Hematocrit 43.4 % (36.0-46.0); Hemoglobin 13.6 g/dL (12.2-16.2); Lymphocytes % (auto) 30.7 % (10.0-50.0); Mean Corpuscular Hemoglobin 23.8 pg (28.0-32.0); Mean Corpuscular Hgb Conc. 31.4 g/dL (32.0-36.0); Monocytes % (auto) 9.9 % (0.0-12.0); Neutrophils # (auto) 3.5 10 ^3/uL (1.6-8.6); Neutrophils % (auto) 54.8 % (37.0-80.0); Red Blood Cells 5.72 10^6/uL (4.0-5.20); Red Cell Distribution Width 16.6 % (11.8-14.3)
[2022-09-29 08:14] LABS: Urine Specific Gravity 1.028 (1.001-1.035)
[2022-09-29 08:15] LABS: Urine Blood Negative /uL (Negative)
[2022-09-29 08:55] LABS: BUN/Creatinine Ratio 11.4; Bilirubin, Total 0.5 mg/dL (0.2-1.0); Calcium 9.8 mg/dL (8.5-10.1); Potassium 4.2 mmol/L (3.5-5.1); Total Protein 7.6 g/dL (6.4-8.2)
[2022-09-29] MEDS ORDERED: HYDROmorphone HCL 2 MG/ML VL/or syr IV ONE (10:45)
[2022-09-29] MEDS ORDERED: SODIUM CHLORIDE 0.9% 1,000 ML IV ONE (10:45)
[2022-09-29] MEDS ORDERED: IOHEXOL 300 MG/ML 100ML BOTTLE IJ ONE (11:03)
[2022-09-29] MEDS ORDERED: KETOROLAC TROMETH 30 MG/ML 1ML VIAL IV ONE (15:15)
[2022-09-29] MEDS ORDERED: NAP500T PO (19:28)
[2022-09-29] MEDS ORDERED: HYDROmorphone HCL 2 MG/ML VL/or syr IM ONE (20:45)
[2022-09-29] MEDS ORDERED: KETOROLAC TROMETH 60MG/2ML VIAL IM ONE (20:45)
[2022-09-29 21:20] VITALS: BP 129/86
== END 2022-09-29 22:15 | disposition home or self-care (01) ==
LOC: ER 07:31
DX: N83.201 Unspecified ovarian cyst, right side (principal); J45.909 Unspecified asthma, uncomplicated; Z79.2 Long term (current) use of antibiotics; Z79.899 Other long term (current) drug therapy; Z88.1 Allergy status to other antibiotic agents; Z91.018 Allergy to other foods
CPT/HCPCS: 36415; 74177; 76830; 76856; 80053; 81003; 83690; 84702; 85025; 96360; 96372; 99285; J1885; J7030; Q9967

== ENCOUNTER 2023-06-07 18:15 | Emergency (ER) | payer MEDICAID ==
[~2023-06-07] VITALS: Ht 149.9 cm; Wt 72.8 kg
[~2023-06-07 18:15] MED LIST changes: +NAP500T PO
[2023-06-07 19:06] LABS: Urine Bacteria NONE SEEN /hpf (None Seen); Urine Blood Negative /uL (Negative); Urine Clarity HAZY (Clear); Urine Color Yellow (Yellow); Urine Mucus MODERATE (None Seen); Urine Protein, UAD 1+ (Negative); Urine Specific Gravity 1.035 (1.001-1.035); Urine WBC 9 /hpf (0 - 5)
[2023-06-07 20:03] LABS: Basophils # (auto) 0.1 10 ^3/uL (0-0.2); Basophils % (auto) 0.5 % (0.0-2.0); Eosinophils # (auto) 0.1 10 ^3/uL (0-0.8); Eosinophils % (auto) 0.6 % (0.0-7.0); Hematocrit 43.4 % (36.0-46.0); Hemoglobin 14.1 g/dL (12.2-16.2); Mean Corpuscular Hemoglobin 27.1 pg (28.0-32.0); Mean Corpuscular Hgb Conc. 32.5 g/dL (32.0-36.0); Mean Corpuscular Volume 83.5 fL (80.0-100.0); Monocytes # (auto) 1.3 10 ^3/uL (0-1.3); Neutrophils # (auto) 7.2 10 ^3/uL (1.6-8.6); Neutrophils % (auto) 61.9 % (37.0-80.0); Nucleated Red Blood Cells % 0.1 %; Red Cell Distribution Width 15.2 % (11.8-14.3); White Blood Cell 11.6 10^3/uL (4.4-10.8)
[2023-06-07 20:24] LABS: Albumin 4.3 g/dL (3.4-5.0); Calcium 9.6 mg/dL (8.5-10.1); Potassium 3.4 mmol/L (3.5-5.1)
[2023-06-07 20:27] LABS: BUN/Creatinine Ratio 20.9 (10.0-20.0); Bilirubin, Total 0.4 mg/dL (0.2-1.0); Total Protein 8.6 g/dL (6.4-8.2)
[2023-06-07] MEDS ORDERED: FAMOTIDINE (10MG/ML) 2ML VL IV ONE (22:15)
[2023-06-07] MEDS ORDERED: ONDANSETRON HCL 4 MG/2 ML VIAL IV ONE (22:15)
[2023-06-07] MEDS ORDERED: MORPHINE SULFATE 4 MG/ML SYR/VIAL IV ONE (22:15)
[2023-06-07] MEDS ORDERED: MAALOX PLUS or MAALOX 30 ML PO ONE (22:30)
[2023-06-07] MEDS ORDERED: LIDOCAINE VISCOUS 2% 15ML UD PO ONE (22:30)
[2023-06-07] MEDS ORDERED: HYDROcodone-ACET 5/325MG TAB PO ONE (22:30)
[2023-06-07 22:35] VITALS: BP 134/74; PULSE 100; RESP 19; TEMP 97.9; O2SAT 98
[2023-06-07] MEDS ORDERED: CEPH500C PO (22:35)
[2023-06-07] MEDS ORDERED: ZOFR4T PO (22:35)
[2023-06-07] MEDS ORDERED: FAMO20TA10 PO (22:35)
[2023-06-07] MEDS ORDERED: SODIUM CHLORIDE 0.9% 1,000 ML IV ONE (23:00)
== END 2023-06-07 23:38 | disposition home or self-care (01) ==
LOC: ER 18:15
DX: N39.0 Urinary tract infection, site not specified (principal); K29.70 Gastritis, unspecified, without bleeding; R10.33 Periumbilical pain; R11.2 Nausea with vomiting, unspecified; J45.909 Unspecified asthma, uncomplicated; Z88.1 Allergy status to other antibiotic agents; Z79.899 Other long term (current) drug therapy; Z98.890 Other specified postprocedural states
CPT/HCPCS: 36415; 74176; 80053; 81001; 81025; 83690; 85025; 96374; 96375; 99285; J2405; J3490; J7030

== ENCOUNTER 2025-07-07 09:01 | Emergency (ER) | payer MEDICAID ==
[~2025-07-07] VITALS: Ht 147.3 cm; Wt 65.8 kg
[~2025-07-07 09:01] MED LIST changes: +CEPH500C PO; +FAMO20TA10 PO; +ZOFR4T PO
--- NOTE | 2025-07-07 10:06 | ED.PDOC ---
GI ASSESSMENT HPI Comments 30 year old female presents to the ED with a chief complaint of abdominal pain onset 2 days. Patient states she has been experiencing upper abdominal pain as well as nausea, vomiting, poor appetite. She experienced similar pain in the past, saw PCP, states blood work was negative, was not given a diagnosis. PMHx asthma. Denies fever, chills, hematemesis, dysuria, hematuria, melena, blood in stool, dizziness, chest pain, shortness of breath. No other symptoms or modifying factors present at this time. Chief Complaint: Abdominal Pain Time Seen by MD: 09:30 Primary Care Provider: MARAL Reviewed Notes: Medications, Allergies Allergies: Coded Allergies: Amoxicillin (Verified Allergy, Severe, 09/29/22) Uncoded Allergies: STRAWBERRIES (Allergy, Severe, 09/29/22) Home Meds Active Scripts Cephalexin Monohydrate (Cephalexin) 500 Mg Cap, 1 CAP PO QID for 10 Days, #40 CAP Prov:PANCHITO OSORIO Q LINK CUTTER 06/07/23 Ondansetron Odt 4MG Tab (ZOFRAN PO) 4 Mg Tb, 1 TAB PO Q8HR, #20 TAB ODT TAB-DISSOLVE IN MOUTH, THEN SWALLOW as needed for nausea/vomiting Prov:AVELINO OSORIOA Q LINK CUTTER 06/07/23 Famotidine (PEPCID TABLET) 20 Mg Tb, 1 TAB PO BID for 30 Days, #60 TAB Prov:AVELINO OSORIOA Q LINK CUTTER 06/07/23 Naproxen (NAPROSYN TABLET) 500 Mg Tb, 1 TAB PO BID PRN for 10 Days, #20 TAB 1 Refill Prov:ANH CANADA MD 09/29/22 Albuterol Sulfate (Albuterol Sulfate Hfa) 108 Mcg/Act Aer, 108 MCG IN QID, #90 AER Prov:ALIYAH FIGUEROA 07/30/22 Prednisone (Prednisone) 20 Mg Tab, 60 MG PO DAILY for 5 Days, #15 TAB Prov:ALIYAH FIGUEROA 07/30/22 Dextromethorphan-Guaifenesin (Robitussin-Dm) 10 Ml Sr, 10 ML PO Q6HPRN PRN, #120 ML Prov:ASHELY MATA MD 03/19/22 Prednisone (Prednisone) 20 Mg Tab, 20 MG PO BID, #21 MG Take 2 tablets (40 mg) twice daily for 3 days, 1 tablet (20 mg)twice daily for 3 days,1 tablet (20 mg) once daily for 3 days. Prov:ASHELY AMTA MD 03/19/22 Azithromycin (Azithromycin) 500 Mg Tab, 1 TAB PO DAILY, #5 TAB Prov:ASHELY MATA MD 03/19/22 Montelukast Sodium (Singulair) 10 Mg Tab, 10 MG PO DAILY, #30 TAB Prov:ASHELY MATA MD 03/19/22 Ipratropium [place] (Ipratropium [place]) 0.02 % Laura, 0.5 MG NEB Q6HWA, #30 ML Prov:ASHELY MATA MD 03/19/22 Albuterol Sulfate (Ventolin) 2.5 Mg/0.5 Ml Nb, 2.5 MG NEB Q6HWA, #30 INH Prov:ASHELY MATA MD 03/19/22 Reported Medications Vit W/ Ferrous Fumara ( One Daily) Daily Tab, 1 OR for SUPPLEMENT, TAB 04/02/21 Fluticasone Propionate (Flovent Diskus) 50 Mcg Aer, for ASTHMA 08/23/10 Information Source: Patient Mode of Arrival: Ambulatory Timing: Days Duration: Since onset Prehospital treatment: None Quality: Cramping, Sharp Severity: Moderate Recent: None Recent Hx of: None Pain Location: Epigastric, RUQ, LUQ Modifying Factors: Nothing Associated sign and symptoms: Nausea, Vomiting, Abdominal Pain Past Medical History PAST MEDICAL HISTORY: Asthma Surgical History: ADMISSION SPECIALIST History: No Pertinent ADMISSION SPECIALIST History Family History Family History: Reviewed,noncontributory to illness, No family hx of Cancer, No family hx of DM, No family hx of Heart tammy, Family hx of lung tammy Social History Smoker: Non-Smoker Alcohol: Denies ETOH Use Drugs: Denies Drug Use Lives In: Home Constitutional: denies: chills, diaphoresis, fatigue, fever, malaise, sweats, weakness, others EENTM: denies: blurred vision, double vision, ear bleeding, ear discharge, ear drainage, ear pain, ear ringing, eye pain, eye redness, hearing loss, mouth pain, mouth swelling, nasal discharge, nose bleeding, nose congestion, nose pain, photophobia, tearing, throat pain, throat swelling, voice changes, others Respiratory: denies: cough, hemoptysis, orthopnea, SOB at rest, shortness of breath, SOB with excertion, stridor, wheezing, others Cardiovascular: denies: chest pain, dizzy spells, diaphoresis, Dyspnea on exertion, edema, irregular heart beat, left arm pain, lightheadedness, palpitations, PND, syncope, others Gastrointestinal: reports: abdominal pain, nausea, poor appetite, vomiting; denies: abdomen distended, blood streaked bowels, constipated, diarrhea, dysphagia, difficulty swallowing, hematemesis, melena, poor fluid intake, rectal bleeding, rectal pain, others Genitourinary: denies: abnormal vagina bleeding, burning, dyspareunia, dysuria, flank pain, frequency, hematuria, incontinence, pain, , vagina disc harge, urgency, others Neurological: denies: dizziness, fainting, headache, left sided numbness, left sided weakness, numbness, paresthesia, pre-existing deficit, right sided numbness, right sided weakness, seizure, speech problems, tingling, tremors, weakness, others Musculoskeletal: denies: back pain, gout, joint pain, joint swelling, muscle pain, muscle stiffness, neck pain, others Integumetry: denies: bruises, change in color, change in hair/nails, dryness, laceration, lesions, lumps, rash, wounds, others Allergic/Immunocompromised: denies: Difficulty Healing, Frequent Infections, Hives, Itching, others Hematologic/Lymphatic: denies: anemia, blood clots, easy bleeding, easy bruising, swollen glands, others Endocrine: denies: excessive hunger, excessive sweating, excessive thirst, excessive urination, flushing, intolerance to cold, intolerance to heat, unexplained weight gain, unexplained weight loss, others Psychiatric: denies: anxiety, bipolar disorder, depression, hopeless, panic disorder, schizophrenia, sleepless, suicidal, others All Other Systems: Reviewed and Negative Physical Exam General Appearance: Normal HEENT: Normal ENT Inspection, Pharynx Normal, TMs Normal Neck: Full Range of Motion, Non-Tender, Normal, Normal Inspection Respiratory: Chest Non-Tender, Lungs Clear, No Accessory Muscle Use, No Respiratory Distress, Normal Breath Sounds Cardiovascular: No Edema, No JVD, No Murmur, No Gallop, Normal Peripheral Pulses, Regular Rate/Rhythm Breast Exam: Deferred Gastrointestinal: No Organomegaly, Non Tender, No Pulsatile Mass, Normal Bowel Sounds, Soft Genitalia: Deferred Pelvic: Deferred Rectal: Deferred Extremities: No calf tenderness, Normal capillary refill, Normal inspection, Normal range of motion, Non-tender, No pedal edema Musculoskeletal : Apperance: Normal Neurologic: Alert, ecommerce analyst II-XII nml as Tested, No Motor Deficits, Normal Affect, Normal Mood, No Sensory Deficits Cerebellar Function: Normal Reflexes: Normal Skin: Dry, Normal Color, Warm Lymphatic: No Adenopathy Was a procedure done? Was a procedure done?: No X-Ray, Labs, Meds, VS Vital Signs Date Time Temp Pulse Resp B/P (MAP) Pulse Ox O2 Delivery O2 Flow Rate FiO2 07/07/25 09:05 97.7 68 15 131/63 99 97.7 Time of 1ST Reevaluation: 10:00 Reevaluation 1ST: Unchanged Patient Education/Counseling: Diagnosis, Treatment, Prognosis Family Education/Counseling: No Family Present SEPSIS Sepsis Screen Date sepsis recognized/suspect: Jul 07, 2025 Time Sepsis recognized/suspect: 906 Recent Procedure: No On Antibiotic Therapy: No Respiratory Rate >20: No Heart Rate >90: No Temp<36 C (96.8 F) or >38.3 C: No SBP <90 or MAP <65 mmHG: No New Acute Mental Status Change: No Is the patient on CPAP, BIPAP,: No Vital Signs Date Time Temp Pulse Resp B/P (MAP) Pulse Ox O2 Delivery O2 Flow Rate FiO2 07/07/25 09:05 97.7 68 15 131/63 99 97.7 Critical Care Note Critical Care Time?: No Stability Stability form required: No I personally scribed for MAC JACOBO MD ([email or web address]) on 07/07/25 at 10:06. Electronically submitted by Quincy Perdomo ([email or web address]). I personally scribed for MAC JACOBO MD ([email or web address]) on 07/07/25 at 10:29. Electronically submitted by Caroline Tubbs ([email or web address]). MCA JACOBO MD Jul 07, 2025 10:06
--- NOTE | 2025-07-07 10:33 | ED.PDOC ---
GI ASSESSMENT HPI Comments 30 year old male presents to the ED with a chief complaint of abdominal pain onset 2 days. Patient states she has been experiencing upper abdominal pain for the past 2 days as well as poor appetite, nausea, vomiting. Patient has been experiencing similar pain in the past, has been seen by PCP, had negative lab work. PMHx asthma. Denies fever, chills, chest pain, dizziness, headache, blurred vision. NO other symptoms or modifying factors present at this time. Chief Complaint: Abdominal Pain Time Seen by MD: 09:30 Primary Care Provider: MARAL Reviewed Notes: Medications, Allergies Allergies: Coded Allergies: Amoxicillin (Verified Allergy, Severe, 09/29/22) Uncoded Allergies: STRAWBERRIES (Allergy, Severe, 09/29/22) Home Meds Active Scripts Cephalexin Monohydrate (Cephalexin) 500 Mg Cap, 1 CAP PO QID for 10 Days, #40 CAP Prov:PANCHITO OSORIO Q MINING AND QUARRYING MACHINERY REPAIRER 06/07/23 Ondansetron Odt 4MG Tab (ZOFRAN PO) 4 Mg Tb, 1 TAB PO Q8HR, #20 TAB ODT TAB-DISSOLVE IN MOUTH, THEN SWALLOW as needed for nausea/vomiting Prov:PANCHITO OSORIO Q MINING AND QUARRYING MACHINERY REPAIRER 06/07/23 Famotidine (PEPCID TABLET) 20 Mg Tb, 1 TAB PO BID for 30 Days, #60 TAB Prov:PANCHITO OSORIO Q MINING AND QUARRYING MACHINERY REPAIRER 06/07/23 Naproxen (NAPROSYN TABLET) 500 Mg Tb, 1 TAB PO BID PRN for 10 Days, #20 TAB 1 Refill Prov:ANH CANADA MD 09/29/22 Albuterol Sulfate (Albuterol Sulfate Hfa) 108 Mcg/Act Aer, 108 MCG IN QID, #90 AER Prov:ALIYAH FIGUEROA 07/30/22 Prednisone (Prednisone) 20 Mg Tab, 60 MG PO DAILY for 5 Days, #15 TAB Prov:ALIYAH FIGUEROA 07/30/22 Dextromethorphan-Guaifenesin (Robitussin-Dm) 10 Ml Sr, 10 ML PO Q6HPRN PRN, #120 ML Prov:ASHELY MATA MD 03/19/22 Prednisone (Prednisone) 20 Mg Tab, 20 MG PO BID, #21 MG Take 2 tablets (40 mg) twice daily for 3 days, 1 tablet (20 mg)twice daily for 3 days,1 tablet (20 mg) once daily for 3 days. Prov:ASHELY MATA MD 03/19/22 Azithromycin (Azithromycin) 500 Mg Tab, 1 TAB PO DAILY, #5 TAB Prov:ASHELY MATA MD 03/19/22 Montelukast Sodium (Singulair) 10 Mg Tab, 10 MG PO DAILY, #30 TAB Prov:ASHELY MATA MD 03/19/22 Ipratropium [place] (Ipratropium [place]) 0.02 % Laura, 0.5 MG NEB Q6HWA, #30 ML Prov:ASHELY MATA MD 03/19/22 Albuterol Sulfate (Ventolin) 2.5 Mg/0.5 Ml Nb, 2.5 MG NEB Q6HWA, #30 INH Prov:ASHELY MATA MD 03/19/22 Reported Medications Vit W/ Ferrous Fumara ( One Daily) Daily Tab, 1 OR for SUPPLEMENT, TAB 04/02/21 Fluticasone Propionate (Flovent Diskus) 50 Mcg Aer, for ASTHMA 08/23/10 Information Source: Patient Mode of Arrival: Ambulatory Timing: Days Duration: Since onset Prehospital treatment: None Quality: Sharp Severity: Moderate Recent: None Recent Hx of: None Pain Location: Epigastric, RUQ, LUQ Modifying Factors: Nothing Associated sign and symptoms: Nausea, Vomiting, Abdominal Pain Past Medical History PAST MEDICAL HISTORY: Asthma Surgical History: WASH OPERATOR History: No Pertinent WASH OPERATOR History Family History Family History: Reviewed,noncontributory to illness, No family hx of Cancer, No family hx of DM, No family hx of Heart tammy, Family hx of lung tammy Social History Smoker: Non-Smoker Alcohol: Denies ETOH Use Drugs: Denies Drug Use Lives In: Home Constitutional: denies: chills, diaphoresis, fatigue, fever, malaise, sweats, weakness, others EENTM: denies: blurred vision, double vision, ear bleeding, ear discharge, ear drainage, ear pain, ear ringing, eye pain, eye redness, hearing loss, mouth pain, mouth swelling, nasal discharge, nose bleeding, nose congestion, nose pain, photophobia, tearing, throat pain, throat swelling, voice changes, others Respiratory: denies: cough, hemoptysis, orthopnea, SOB at rest, shortness of breath, SOB with excertion, stridor, wheezing, others Cardiovascular: denies: chest pain, dizzy spells, diaphoresis, Dyspnea on exertion, edema, irregular heart beat, left arm pain, lightheadedness, palpitations, PND, syncope, others Gastrointestinal: reports: abdominal pain, nausea, poor appetite, vomiting; denies: abdomen distended, blood streaked bowels, constipated, diarrhea, dysphagia, difficulty swallowing, hematemesis, melena, poor fluid intake, rectal bleeding, rectal pain, others Genitourinary: denies: abnormal vagina bleeding, burning, dyspareunia, dysuria, flank pain, frequency, hematuria, incontinence, pain, , vagina discharge, urgency, others Neurological: denies: dizziness, fainting, headache, left sided numbness, left sided weakness, numbness, paresthesia, pre-existing deficit, right sided numbness, right sided weakness, seizure, speech problems, tingling, tremors, weakness, others Musculoskeletal: denies: back pain, gout, joint pain, joint swelling, muscle pain, muscle stiffness, neck pain, others Integumetry: denies: bruises, change in color, change in hair/nails, dryness, laceration, lesions, lumps, rash, wounds, others Allergic/Immunocompromised: denies: Difficulty Healing, Frequent Infections, Hives, Itching, others Hematologic/Lymphatic: denies: anemia, blood clots, easy bleeding, easy bruising, swollen glands, others Endocrine: denies: excessive hunger, excessive sweating, excessive thirst, excessive urination, flushing, intolerance to cold, intolerance to heat, unexplained weight gain, unexplained weight loss, others Psychiatric: denies: anxiety, bipolar disorder, depression, hopeless, panic disorder, schizophrenia, sleepless, suicidal, others All Other Systems: Reviewed and Negative Physical Exam General Appearance: Moderate Distress HEENT: Normal ENT Inspection, Pharynx Normal, TMs Normal Neck: Full Range of Motion, Non-Tender, Normal, Normal Inspection Respiratory: Chest Non-Tender, Lungs Clear, No Accessory Muscle Use, No Respiratory Distress, Normal Breath Sounds Cardiovascular: No Edema, No JVD, No Murmur, No Gallop, Normal Peripheral Pulses, Regular Rate/Rhythm Breast Exam: Deferred Gastrointestinal: No Organomegaly, Non Tender, No Pulsatile Mass, Normal Bowel Sounds, Soft Genitalia: Deferred Pelvic: Deferred Rectal: Deferred Extremities: No calf tenderness, Normal capillary refill, Normal inspection, Normal range of motion, Non-tender, No pedal edema Musculoskeletal : Apperance: Normal Neurologic: Alert, management coordinator II-XII nml as Tested, No Motor Deficits, Normal Affect, Normal Mood, No Sensory Deficits Cerebellar Function: Normal Reflexes: Normal Skin: Dry, Normal Color, Warm Peripheral Pulses: 3+ Radial (R), 3+ Radial (L) Lymphatic: No Adenopathy Was a procedure done? Was a procedure done?: No GI differential Dx Differential Diagnosis: Constipation, Diverticular disease, Esophagitis, Gastritis/PUD, Gastroenteritis X-Ray, Labs, Meds, VS Vital Signs Date Time Temp Pulse Resp B/P (MAP) Pulse Ox O2 Delivery O2 Flow Rate FiO2 07/07/25 11:26 72 17 143/54 07/07/25 11:20 72 17 100 Room Air 07/07/25 11:20 98.9 72 17 143/54 (83) 100 98.9 07/07/25 09:05 97.7 68 15 131/63 99 97.7 Lab Test 07/07/25 11:10 07/07/25 09:22 Range/Units White Blood Count 10.6 4.4-10.8 10^3/uL Red Blood Count 4.83 4.0-5.20 10^6/uL Hemoglobin 14.1 12.2-16.2 g/dL Hematocrit 41.7 36.0-46.0 % Mean Corpuscular Volume 86.2 80.0-100.0 fL Mean Corpuscular Hemoglobin 29.1 28.0-32.0 pg Mean Corpuscular Hemoglobin Concent 33.8 32.0-36.0 g/dL Red Cell Distribution Width 13.7 11.8-14.3 % Platelet Count 364 140-450 10^3/uL Mean Platelet Volume 8.6 6.9-10.8 fL Neutrophils (%) (Auto) 72.7 37.0-80.0 % Lymphocytes (%) (Auto) 19.1 10.0-50.0 % Monocytes (%) (Auto) 6.7 0.0-12.0 % Eosinophils (%) (Auto) 0.9 0.0-7.0 % Basophils (%) (Auto) 0.6 0.0-2.0 % Neutrophils # (Auto) 7.7 1.6-8.6 10 ^3/uL Lymphocytes # (Auto) 2.0 0.4-5.4 10 ^3/uL Monocytes # (Auto) 0.7 0-1.3 10 ^3/uL Eosinophils # (Auto) 0.1 0-0.8 10 ^3/uL Basophils # (Auto) 0.1 0-0.2 10 ^3/uL Nucleated Red Blood Cells 0.1 % Sodium Level 141 136-145 mmol/L Potassium Level 3.4 L 3.5-5.1 mmol/L Chloride Level 107 98-107 mmol/L Carbon Dioxide Level 23 20-31 mmol/L Anion Gap 11 5-15 Blood Urea Nitrogen 9 9-23 mg/dL Creatinine 0.78 0.550-1.02 mg/dL Glomerular Filtration Rate Calc 105 >90 mL/min BUN/Creatinine Ratio 11.5 10.0-20.0 Serum Glucose 84 74-106 mg/dL Calcium Level 9.3 8.7-10.4 mg/dL Urine Color Yellow Yellow Urine Clarity Turbid H Clear Urine pH 6.0 5.0-9.0 Urine Specific [place] 1.032 1.001-1.035 Urine Protein Trace H Negative Urine Ketones 2+ H Negative Urine Blood 2+ H Negative /uL Urine Nitrite Negative Negative Urine Bilirubin Negative Negative Urine Urobilinogen 2 H Negative mg/dL Urine Leukocyte Esterase Negative Negative /uL Urine RBC 17 0 - 4 /hpf Urine Microscopic WBC 4 0-5 /HPF Urine Squamous Epithelial Cells Many <5 /hpf Urine Bacteria None seen None Seen /hpf Urine Mucus Few None Seen Urine Glucose Normal Normal mg/dL Current Medications Medications (Trade) Dose Ordered Sig/Andrew Route Start Time Stop Time Status Last Admin Ondansetron HCl (Zofran) 4 mg ONCE ONCE IV 07/07/25 10:45 07/07/25 10:46 DC 07/07/25 11:25 Sodium Chloride 1,000 ml @ 1,000 mls/hr Q1H ONCE IVB 07/07/25 10:45 07/07/25 11:44 DC 07/07/25 11:27 Morphine Sulfate 4 mg ONCE ONCE IV 07/07/25 10:45 07/07/25 10:46 DC 07/07/25 11:26 Patient alert. Complaining of abdominal discomfort. Vitals stable. Answering questions. Establish intravenous access. Was given fluids. Was given morphine. Was given Zofran. WBC within normal limits. CT scan of the abdomen reviewed does not show any acute changes. Possible gastroenteritis. Was given prescription of Zofran. Explained to the patient. Was told to follow up with her primary care physician. Was told to come back if there is any problem. Time of 1ST Reevaluation: 10:00 Reevaluation 1ST: Unchanged Patient Education/Counseling: Diagnosis, Treatment, Prognosis Family Education/Counseling: No Family Present SEPSIS Sepsis Screen Date sepsis recognized/suspect: Jul 07, 2025 Time Sepsis recognized/suspect: 906 Recent Procedure: No On Antibiotic Therapy: No Respiratory Rate >20: No Heart Rate >90: No Temp<36 C (96.8 F) or >38.3 C: No SBP <90 or MAP <65 mmHG: No New Acute Mental Status Change: No Is the patient on CPAP, BIPAP,: No Physician Orders Ct Ab Pel Wo Con-No Oral Or Iv (07/07/25 11:49) Vital Signs Date Time Temp Pulse Resp B/P (MAP) Pulse Ox O2 Delivery O2 Flow Rate FiO2 07/07/25 11:26 72 17 143/54 07/07/25 11:20 72 17 100 Room Air 07/07/25 11:20 98.9 72 17 143/54 (83) 100 98.9 07/07/25 09:05 97.7 68 15 131/63 99 97.7 Laboratory Tests Test 07/07/25 11:10 White Blood Count 10.6 10^3/uL (4.4-10.8) Medications Medications Dose Ordered Sig/Andrew Route Start Time Stop Time Status Last Admin Dose Admin Morphine Sulfate 4 mg ONCE ONCE IV 07/07/25 10:45 07/07/25 10:46 DC 07/07/25 11:26 Ondansetron HCl 4 mg ONCE ONCE IV 07/07/25 10:45 07/07/25 10:46 DC 07/07/25 11:25 Sodium Chloride 1,000 ml @ 1,000 mls/hr Q1H ONCE IVB 07/07/25 10:45 07/07/25 11:44 DC 07/07/25 11:27 Departure 1 Departure Time of Disposition: 10:00 Impression: Primary Impression: Gastroenteritis Disposition: 01 HOME / SELF CARE / HOMELESS Condition: Good e-Prescriptions Ondansetron Odt 4MG Tab (ZOFRAN PO) 4 Mg Tb 4 MG PO DAILY for 3 Days, #3 TAB ODT TAB-DISSOLVE IN MOUTH, THEN SWALLOW Prov: MAC JACOBO MD 07/07/25 Discharged With: Self Critical Care Note Critical Care Time?: No Stability Stability form required: No Heart Score Heart Score: Heart Score Response (Comments) Value History N/A 0 EKG N/A 0 Age N/A 0 Risk Factors N/A 0 Troponin N/A 0 Total 0 I personally scribed for MAC JACOBO MD ([email or web address]) on 07/07/25 at 10:33. Electronically submitted by Caroline Tubbs ([email or web address]). MAC JACOBO MD Jul 07, 2025 10:33
[2025-07-07 11:23] LABS: Urine Protein, UAD TRACE (Negative)
[2025-07-07] MEDS: ONDANSETRON HCL 4 MG/2 ML VIAL IV ONE (11:25)
[2025-07-07] MEDS: MORPHINE SULFATE 4 MG/ML SYR/VIAL IV ONE (11:26)
[2025-07-07] MEDS: SODIUM CHLORIDE 0.9% 1,000 ML IVB ONE (11:27)
[2025-07-07 11:33] LABS: Hematocrit 41.7 % (36.0-46.0); Hemoglobin 14.1 g/dL (12.2-16.2); Mean Corpuscular Hemoglobin 29.1 pg (28.0-32.0); Mean Corpuscular Volume 86.2 fL (80.0-100.0); Nucleated Red Blood Cells % 0.1 %
[2025-07-07 11:39] LABS: Chloride 107 mmol/L (98-107); Sodium 141 mmol/L (136-145)
[2025-07-07 11:40] LABS: Anion Gap 11 (5-15); Calcium 9.3 mg/dL (8.7-10.4); Carbon Dioxide 23 mmol/L (20-31)
[2025-07-07 11:42] LABS: Potassium 3.4 mmol/L (3.5-5.1)
[2025-07-07 11:45] LABS: BUN/Creatinine Ratio 11.5 (10.0-20.0); Glucose 84 mg/dL (74-106)
[2025-07-07 11:46] LABS: Blood Urea Nitrogen 9 mg/dL (9-23)
--- NOTE | 2025-07-07 12:24 | DVH ---
EXAM: CT CT AB PEL WO CON-NO ORAL OR IV HISTORY: stone COMPARISON: CT CT AB PEL WO CON-NO ORAL OR IV on DOS: 06/07/23 TECHNIQUE: Helical CT images of the abdomen and pelvis were performed without IV contrast. Sagittal a nd coronal reformatted images were obtained. This CT exam was performed using one or more of the foll owing dose reduction techniques: Automated exposure control, adjustment of the mA and/or kv according to patient size, or the use of iterative reconstruction techniques. Radiation Dose: Abdomen/Pelvis: CTDIvol 13.3 mGy, DLP 680.87 mGy*cm. FINDINGS: CT abdomen: There are bilateral breast implants, not fully imaged here. The lung bases are clear. The heart is not enlarged. There is a trace pericardial effusion. The noncontrast liver, spleen, gallbla dder, pancreas, kidneys, and adrenal glands are unremarkable. No calculi are identified throughout th e urinary tract bilaterally. No abdominal aortic aneurysm. CT pelvis: No abnormal bowel dilatation or free air. There is trace free fluid in the pelvis. The daniel endix and urinary bladder are unremarkable. Intrauterine device appears appropriately positioned in t he endometrial cavity. There is mild lumbar degenerative disc disease. IMPRESSION: 1. Trace free fluid in the pelvis may be physiologic. 2. Postoperative changes of bilateral breast implants and IUD. 3. No evidence of bowel obstruction, urinary tract obstruction, acute appendicitis, or other acute pr ocess in the abdomen or pelvis.
[2025-07-07] MEDS ORDERED: ZOFR4T PO (12:52)
[2025-07-07 13:23] VITALS: BP 120/77; PULSE 88; RESP 16; TEMP 98; O2SAT 97
== END 2025-07-07 13:22 | disposition home or self-care (01) ==
LOC: ER 09:01
DX: K52.9 Noninfective gastroenteritis and colitis, unspecified (principal); J45.909 Unspecified asthma, uncomplicated; Z88.0 Allergy status to penicillin; Z79.899 Other long term (current) drug therapy
CPT/HCPCS: 36415; 74176; 80048; 81001; 85025; 96361; 96374; 96375; 99285; J2270; J2405; J7030